=== PATIENT | female | born 2005 | race Caucasian/White ===

== ENCOUNTER 2025-01-31 16:20 | Emergency (ER) | payer BC, SELFPAY ==
[2025-01-31 16:19] VITALS: BP 129/80; PULSE 75; RESP 20; TEMP 36.8; O2SAT 100
[2025-01-31 16:36] VITALS: O2SAT 100
[2025-01-31 17:00] VITALS: BP 133/74; PULSE 79; RESP 23; O2SAT 99
[2025-01-31 18:00] VITALS: BP 135/58; PULSE 77; RESP 16; O2SAT 100
[2025-01-31 18:54] VITALS: BP 111/61; PULSE 74; RESP 18; O2SAT 100
--- OUTSIDE RECORDS SUMMARY | 2025-01-31 19:13 | XMS_ITS | Clinical Summary ---
Author Organization [facility] Address [address] [place] [address] Care Team Providers Care Sales And In Home Delivery Specialist Name Role Phone Yvon Nelson MD Primary Care Provider [phone] Source Comments [facility],non-owned Affiliates and Associated Physician Practices is amultiple site organization consisting of ambulatory clinics and hospital sitesin [place], [place], [place] and [place]. This disclosure is being madepursuant to the Care Everywhere program and may not contain all information available regarding this patient. Last updated 18.[facility] Allergies No known active allergies Medications * Be aware that medications may not be up to date on this document. Alwaysverify current medications with the patient. acetaminophen (TYLENOL) 325 MG tablet Take 650 mg by mouth every 4 hours as needed for Fever or Pain Maximum allowable Acetaminophen amount = 4 Grams (4000 mg) / 24 hours. Active Active Problems Problem Noted Date Diagnosed Date Toe dislocation, right, initial encounter 2017 Social History Tobacco Use Types Packs/Day Years Used Date Smoking Tobacco: Never Smokeless Tobacco: Never Comments:No passive smoke ex posure Comments No Sex and Gender Information Value Date Recorded Sex Assigned at Not on file Legal Sex Female 6:45 AM [employer] Gender Identity Not on file Sexual Orientation Not on file Last Filed Vital Signs Vital Sign Reading Time Taken Comments Blood Pressure 106/68 05/13/2020 2:13 PM CDT Pulse 61 05/13/2020 2:13 PM CDT Temperature 36.7 C (98 F) 05/13/2020 2:13 PM CDT Respiratory Rate 18 05/13/2020 2:13 PM CDT Oxygen Saturation 98% 05/13/2020 2:13 PM CDT Inhaled Oxygen Concentration - - Weight 59.4 kg (131 lb) 05/13/2020 2:13 PM CDT Height 165.1 cm (5' 5 ) 05/13/2020 2:13 PM CDT Body Mass Index 21.8 05/13/2020 2:13 PM CDT Body Mass Index Percentile 71.33% 05/13/2020 2:1 3 PM CDT Growth Chart: [facility] (Girls, 2- 20 Years) Plan of Treatment Health Maintenance Due Date Last Done Comments HIV SCREENING 2020 HPV VACCINE (1 - 3-dose series) 2020 CHLAMYDIA/GONORRHEA SCREENING 2021 MENINGOCOCCAL (Group B) VACC INE SHARED DECISION-MAKING (1 of 2 - Standard) 2021 HEPATITIS C SCREENING 06/08/2023 DTAP/TDAP/TD VACCINES (1 - Tdap) 2024 HEPATITIS B VACCINE (1 of 3 - 19+ 3-dose series) 2024 COVID-19 VACCINE (1 - 2023-2 5 season) 2024 DEPRESSION SCREENING 10/13/2024 INFLUENZA VACCINE (Season Ended) 2025 ZOSTER VACCINE (1 of 2) 2055 HIB VACCINE Aged Out No longer eligi ble based on patient's age to complete this topic MENINGOCOCCAL GROUPS A/C/Y/W VACCINE Aged Out No longer eligible b ased on patient's age to complete this topic PNEUMOCOCCAL VACCINE Aged Out No long er eligible based on patient's age to complete this topic Insurance [employer] Care Teams Sales And In Home Delivery Specialist Relationship Specialty Start Date End Date Yvon Nelson MD [address] [address] PCP - General Pediatrics 09/11/16
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
[2025-01-31 19:30] VITALS: BP 116/74; PULSE 64; RESP 16; O2SAT 100
[2025-01-31] MEDS: SILVER SULFADIAZINE 1% CR 50 GM JAR (*BKC) 1 APPLIC TOPICAL (19:36)
== END 2025-01-31 19:57 | disposition home or self-care (01) ==
PROVIDERS: Emergency Provider Physician Assistant; PCP Pediatrics
DX: T54.3X1A Toxic effect of corrosive alkalis and alkali-like substances, accidental (unintentional), initial encounter (principal); T20.57XA Corrosion of first degree of neck, initial encounter; T32.0 Corrosions involving less than 10% of body surface
CPT/HCPCS: 99283; A9270